=== PATIENT | female | born 1975 | race Hispanic/Latino ===

== ENCOUNTER 2018-02-11 04:36 | Emergency (ER) | payer OTHER ==
[~2018-02-11] VITALS: Ht 154.9 cm; Wt 104.3 kg
[2018-02-11] MEDS ORDERED: DIAZEPAM 5 MG TAB PO ONE (04:45)
[2018-02-11] MEDS ORDERED: HYDROCODONE/APAP 10MG-325MG TAB PO ONE (04:45)
[2018-02-11] MEDS ORDERED: KETOROLAC TROMETHAMINE 60 MG/2 ML VIAL IM ONE (04:45)
[2018-02-11] MEDS ORDERED: KETOROLAC TROMETHAMINE 60 MG/2 ML VIAL ONE (04:48)
[2018-02-11] MEDS ORDERED: DIAZEPAM 5 MG TAB ONE (04:48)
[2018-02-11] MEDS ORDERED: HYDROCODONE/APAP 10MG-325MG TAB ONE (04:49)
[2018-02-11] MEDS ORDERED: METHYLPREDNISOLONE SOD SUCC 125 MG/2ML VIAL ONE (06:06)
[2018-02-11] MEDS ORDERED: METHYLPREDNISOLONE SOD SUCC 125 MG/2ML VIAL IM ONE (06:15)
== END 2018-02-11 05:30 | disposition home or self-care (01) ==
LOC: ER 04:36
DX: M54.42 Lumbago with sciatica, left side (principal); S39.012A Strain of muscle, fascia and tendon of lower back, initial encounter; I10 Essential (primary) hypertension; E11.9 Type 2 diabetes mellitus without complications
CPT/HCPCS: 99283; J1885; J2930